=== PATIENT | female | born 1955 | race Two or more races ===

== ENCOUNTER 2017-03-16 13:52 | Inpatient (IN) | payer OTHER ==
[~2017-03-16] VITALS: Ht 167.6 cm; Wt 95.6 kg
[2017-03-16 14:00] VITALS: BP 121/75
[2017-03-16] MEDS ORDERED: MYCOSTATIN1 APPLICAT TP (14:36)
[2017-03-16] MEDS ORDERED: SENNA8.6 MG PO (14:37)
[2017-03-16] MEDS ORDERED: K-DUR20 MEQ PO (14:38)
[2017-03-16] MEDS ORDERED: TRADJENTA5 MG PO (14:39)
[2017-03-16] MEDS ORDERED: GLUCOPHAGE500 MG PO (14:41)
[2017-03-16] MEDS ORDERED: HUMALOG100 UNIT/2 SQ (14:43)
[2017-03-16] MEDS ORDERED: LISINOPRIL2.5 MG PO (14:44)
[2017-03-16] MEDS ORDERED: PEPCID AC20 MG PO (14:45)
[2017-03-16] MEDS ORDERED: TYLENOL EXTRA500 MG PO (14:47)
[2017-03-16] MEDS ORDERED: METOPROLOL TART25 MG PO (14:49)
[2017-03-16] MEDS ORDERED: LO-DOSE ASPIRIN81 M2 PO (14:50)
[2017-03-16] MEDS ORDERED: GLYBURIDE2.5 MG PO (14:51)
[2017-03-16] MEDS ORDERED: COUMADIN10 MG PO (14:53)
[2017-03-16] MEDS ORDERED: ALBUTEROL2.5 MG/0.5 IH ×2 (14:57→14:59)
[2017-03-16] MEDS ORDERED: ULTRAM50 MG PO (15:00)
[2017-03-16] MEDS ORDERED: ERGOCALCIF50000 UNIT PO (15:02)
[2017-03-16] MEDS ORDERED: LEVEMIR FL100 UNIT/1 SQ (15:03)
[2017-03-16] MEDS ORDERED: SIMVASTATIN20 MG PO (15:05)
[2017-03-16] MEDS ORDERED: GLYBURIDE-METF1 EAC1 PO (16:08)
[2017-03-16 16:13] LABS: POINT-OF-CARE METER ID UU14174215
[2017-03-16 19:27] LABS: INTER. NORMALIZED RATIO 2.1; PROTHROMBIN TIME 22.2 (9.2-11.2)
[2017-03-16 21:18] LABS: POINT-OF-CARE METER ID UU14174215
[2017-03-16 22:32] VITALS: BP 111/57
[2017-03-17 05:36] VITALS: BP 102/59
[2017-03-17 05:40] LABS: INTER. NORMALIZED RATIO 1.9; PROTHROMBIN TIME 19.4 (9.2-11.2)
[2017-03-17 05:54] LABS: HEMATOCRIT 35.5 % (36.0-46.0); MCH 26.3 PG (29.0-34.0); MCHC 30.4 G/DL (30.0-36.0); MCV 86.4 FL (83-99); MEAN PLAT.VOLUME 9.6 uM^3 (9.5-12.4); PLATELET COUNT 271 K/uL (156-360); RBC DIS.WIDTH-SD 44.4 % (39-53); RED BLOOD COUNT 4.11 M/uL (3.80-5.20); WHITE BLOOD COUNT 8.4 K/uL (4.1-10.2)
[2017-03-17 05:56] LABS: ALKALINE PHOSPHATASE 48 IU/L (3-129); ANION GAP 10 MEQ/L (2-14); CHLORIDE 104 MEQ/L (99-109); GFR ESTIMATE (CALCULATED) > 59 mL/min/; GLUCOSE 128 mg/dL (70-99); POTASSIUM 4.2 MEQ/L (3.7-5.4); SAMPLE HEMOLYSIS CHECK 0; SAMPLE ICTERIC CHECK 0; SAMPLE LIPEMIA CHECK 0; SODIUM 136 MEQ/L (136-147); TOTAL BILIRUBIN 0.3 MG/DL (0.0-1.0); UREA NITROGEN (BUN) 18 mg/dL (9-23)
[2017-03-17 06:56] LABS: POINT-OF-CARE METER ID UU14174215; POINT-OF-CARE USER ID ENVGAF
[2017-03-17 11:25] LABS: POINT-OF-CARE METER ID UU14174215
[2017-03-17 15:08] VITALS: BP 113/74
[2017-03-17 16:19] LABS: POINT-OF-CARE METER ID UU14174215
[2017-03-17 21:15] LABS: POINT-OF-CARE METER ID UU14174215
[2017-03-18 05:09] LABS: INTER. NORMALIZED RATIO 2.1; PROTHROMBIN TIME 21.7 (9.2-11.2)
[2017-03-18 05:33] VITALS: BP 101/61
[2017-03-18 07:23] LABS: POINT-OF-CARE METER ID UU14174215
[2017-03-18 11:39] LABS: POINT-OF-CARE METER ID UU13113720; POINT-OF-CARE USER ID AHSSSJB31
[2017-03-18 15:00] VITALS: BP 126/76
[2017-03-18 17:04] LABS: POINT-OF-CARE METER ID UU13113720
[2017-03-18 21:07] LABS: POINT-OF-CARE METER ID UU13113720
[2017-03-19 05:28] VITALS: BP 105/59
[2017-03-19 05:35] LABS: INTER. NORMALIZED RATIO 1.9; PROTHROMBIN TIME 19.7 (9.2-11.2)
[2017-03-19 07:28] LABS: POINT-OF-CARE METER ID UU14174215; POINT-OF-CARE USER ID AHSSSJB31
[2017-03-19 11:42] LABS: POINT-OF-CARE METER ID UU13113720; POINT-OF-CARE USER ID AHSSSJB31
[2017-03-19 15:37] VITALS: BP 135/75
[2017-03-19 16:19] LABS: POINT-OF-CARE METER ID UU13113720
[2017-03-19 21:30] LABS: POINT-OF-CARE METER ID UU14174215
[2017-03-20 05:32] LABS: INTER. NORMALIZED RATIO 1.9; PROTHROMBIN TIME 19.9 (9.2-11.2)
[2017-03-20 05:46] VITALS: BP 112/69
[2017-03-20 07:17] LABS: POINT-OF-CARE METER ID UU14174215; POINT-OF-CARE USER ID AHSSSJB31
[2017-03-20 12:16] LABS: POINT-OF-CARE METER ID UU13113720; POINT-OF-CARE USER ID AHSSSJB31
[2017-03-20 15:23] VITALS: BP 128/73
[2017-03-20 16:27] LABS: POINT-OF-CARE METER ID UU13113720
[2017-03-20 21:22] LABS: POINT-OF-CARE METER ID UU13113720
[2017-03-21 03:07] LABS: HEMATOCRIT 37.3 % (36.0-46.0); MCH 26.6 PG (29.0-34.0); MCHC 31.9 G/DL (30.0-36.0); MCV 83.4 FL (83-99); MEAN PLAT.VOLUME 9.5 uM^3 (9.5-12.4); RBC DIS.WIDTH-CV 14.1 % (11.8-14.6); RBC DIS.WIDTH-SD 43.2 % (39-53); RED BLOOD COUNT 4.47 M/uL (3.80-5.20); WHITE BLOOD COUNT 7.6 K/uL (4.1-10.2)
[2017-03-21 03:09] LABS: PLATELET COUNT 364 K/uL (156-360)
[2017-03-21 03:16] LABS: CHLORIDE 107 mEq/L (99-109); POTASSIUM 4.4 mEq/L (3.7-5.4); SODIUM 138 mEq/L (136-147)
[2017-03-21 03:18] LABS: GLUCOSE 122 mg/dL (70-99)
[2017-03-21 03:19] LABS: ANION GAP 9 MEQ/L (2-14)
[2017-03-21 03:20] LABS: TOTAL BILIRUBIN 0.3 mg/dL (0.0-1.0)
[2017-03-21 03:22] LABS: ALKALINE PHOSPHATASE 61 IU/L (3-129); D-DIMER ELISA 3.09 mg/L FEU (< 0.57); GFR ESTIMATE (CALCULATED) > 59 mL/min/; PROTHROMBIN TIME 20.9 (9.2-11.2); TROP-I INTERPRETATION NEGATIVE; TROPONIN-I 0.03 ng/mL (0.0-0.30)
[2017-03-21 03:23] LABS: UREA NITROGEN (BUN) 19 mg/dL (9-23)
[2017-03-21] MEDS ORDERED: NITROSTAT0.4 MG SL (15:56)
== END 2017-03-21 03:26 | DRG 945 ==
LOC: 3WEST 13:52
PROVIDERS: Internal Medicine; Physical Medicine & Rehabilitation Pain Medicine
PROC: F07M0ZZ Range of Motion and Joint Mobility Treatment of Musculoskeletal System - Whole Body (ICD-10-PCS; principal; 2017-03-16)
DX: R53.1 Weakness (principal); I21.4 Non-ST elevation (NSTEMI) myocardial infarction; R26.2 Difficulty in walking, not elsewhere classified; R07.9 Chest pain, unspecified; R41.0 Disorientation, unspecified; R41.89 Other symptoms and signs involving cognitive functions and awareness; D62 Acute posthemorrhagic anemia; I10 Essential (primary) hypertension; I25.10 Atherosclerotic heart disease of native coronary artery without angina pectoris; E78.5 Hyperlipidemia, unspecified; I25.5 Ischemic cardiomyopathy; E11.9 Type 2 diabetes mellitus without complications; M19.90 Unspecified osteoarthritis, unspecified site; J44.9 Chronic obstructive pulmonary disease, unspecified; E66.9 Obesity, unspecified; K21.9 Gastro-esophageal reflux disease without esophagitis; F17.210 Nicotine dependence, cigarettes, uncomplicated; Z68.34 Body mass index [BMI] 34.0-34.9, adult; Z95.1 Presence of aortocoronary bypass graft; Z88.0 Allergy status to penicillin; Z88.1 Allergy status to other antibiotic agents
CPT/HCPCS: 71020; 80053; 82948; 84484; 85027; 85379; 85610; 92523 GN; 93005; 93306; 97110 GO; 97530 GP; 97532 GN; 99202; J1815; J2270

== ENCOUNTER 2017-03-21 03:03 | Observation (INO) | payer OTHER ==
[~2017-03-21] VITALS: Ht 167.6 cm; Wt 92.8 kg
[~2017-03-21 03:03] MED LIST: ALBUTEROL2.5 MG/0.5 IH; COUMADIN10 MG PO; ERGOCALCIF50000 UNIT PO; GLUCOPHAGE500 MG PO; GLYBURIDE-METF1 EAC1 PO; GLYBURIDE2.5 MG PO; HUMALOG100 UNIT/2 SQ; K-DUR20 MEQ PO; LEVEMIR FL100 UNIT/1 SQ; LISINOPRIL2.5 MG PO; LO-DOSE ASPIRIN81 M2 PO; METOPROLOL TART25 MG PO; MYCOSTATIN1 APPLICAT TP; PEPCID AC20 MG PO; SENNA8.6 MG PO; SIMVASTATIN20 MG PO; TRADJENTA5 MG PO; TYLENOL EXTRA500 MG PO; ULTRAM50 MG PO
[2017-03-21 03:53] VITALS: BP 115/65
[2017-03-21 08:19] LABS: POINT-OF-CARE METER ID UU13113700
[2017-03-21 09:00] VITALS: BP 107/61
[2017-03-21 10:00] LABS: TROP-I INTERPRETATION NEGATIVE; TROPONIN-I 0.02 ng/mL (0.0-0.30)
[2017-03-21 11:44] VITALS: BP 106/60
[2017-03-21 12:12] LABS: POINT-OF-CARE METER ID UU13113831
[2017-03-21 12:44] LABS: MCH 26.8 PG (29.0-34.0); MCHC 31.4 G/DL (30.0-36.0); MCV 85.5 FL (83-99); MEAN PLAT.VOLUME 9.4 uM^3 (9.5-12.4); PLATELET COUNT 310 K/uL (156-360); RBC DIS.WIDTH-CV 14.2 % (11.8-14.6); RBC DIS.WIDTH-SD 43.8 % (39-53); RED BLOOD COUNT 4.33 M/uL (3.80-5.20); WHITE BLOOD COUNT 5.9 K/uL (4.1-10.2)
[2017-03-21 13:39] LABS: ALKALINE PHOSPHATASE 58 IU/L (3-129); ANION GAP 8 MEQ/L (2-14); CHLORIDE 105 MEQ/L (99-109); GFR ESTIMATE (CALCULATED) > 59 mL/min/; GLUCOSE 122 mg/dL (70-99); POTASSIUM 4.9 MEQ/L (3.7-5.4); SAMPLE HEMOLYSIS CHECK 0; SAMPLE ICTERIC CHECK 0; SAMPLE LIPEMIA CHECK 0; SODIUM 140 MEQ/L (136-147); TOTAL BILIRUBIN 0.3 MG/DL (0.0-1.0); UREA NITROGEN (BUN) 16 mg/dL (9-23)
[2017-03-21 15:38] LABS: TROP-I INTERPRETATION NEGATIVE; TROPONIN-I 0.03 ng/mL (0.0-0.30)
[2017-03-21] MEDS ORDERED: NITROSTAT0.4 MG SL (15:56)
[2017-03-21 16:55] VITALS: BP 106/60
[2017-03-21 17:08] LABS: POINT-OF-CARE METER ID UU13113700
== END 2017-03-21 17:59 ==
LOC: 5WEST 03:03
PROVIDERS: Hospitalist; Internal Medicine
DX: R07.9 Chest pain, unspecified (principal); I25.10 Atherosclerotic heart disease of native coronary artery without angina pectoris; I25.2 Old myocardial infarction; I10 Essential (primary) hypertension; Z86.711 Personal history of pulmonary embolism; J44.1 Chronic obstructive pulmonary disease with (acute) exacerbation; K21.9 Gastro-esophageal reflux disease without esophagitis; I25.5 Ischemic cardiomyopathy; I34.0 Nonrheumatic mitral (valve) insufficiency; E78.00 Pure hypercholesterolemia, unspecified; E66.9 Obesity, unspecified; Z68.33 Body mass index [BMI] 33.0-33.9, adult; Z95.1 Presence of aortocoronary bypass graft; Z79.01 Long term (current) use of anticoagulants; Z87.891 Personal history of nicotine dependence
CPT/HCPCS: 80053; 82948; 84484; 85027; 93005; 99202; G0378; J1815; J7030

== ENCOUNTER 2017-03-21 15:37 | Inpatient (IN) | payer OTHER ==
[~2017-03-21] VITALS: Ht 167.6 cm; Wt 92.0 kg
[2017-03-21] MEDS ORDERED: NITROSTAT0.4 MG SL (15:56)
[2017-03-21 18:00] VITALS: BP 121/66
[2017-03-21 21:19] LABS: POINT-OF-CARE METER ID UU13113712; POINT-OF-CARE USER ID 610211320
[2017-03-22 05:09] VITALS: BP 114/67
[2017-03-22 06:18] LABS: HEMATOCRIT 36.8 % (36.0-46.0); MCH 26.2 PG (29.0-34.0); MCV 84.6 FL (83-99); MEAN PLAT.VOLUME 9.5 uM^3 (9.5-12.4); PLATELET COUNT 320 K/uL (156-360); RBC DIS.WIDTH-CV 13.9 % (11.8-14.6); RBC DIS.WIDTH-SD 43.3 % (39-53); RED BLOOD COUNT 4.35 M/uL (3.80-5.20); WHITE BLOOD COUNT 6.4 K/uL (4.1-10.2)
[2017-03-22 06:43] LABS: ALKALINE PHOSPHATASE 59 IU/L (3-129); ANION GAP 9 MEQ/L (2-14); CHLORIDE 105 MEQ/L (99-109); GFR ESTIMATE (CALCULATED) > 59 mL/min/; GLUCOSE 127 mg/dL (70-99); POTASSIUM 4.5 MEQ/L (3.7-5.4); SAMPLE HEMOLYSIS CHECK 0; SAMPLE ICTERIC CHECK 0; SAMPLE LIPEMIA CHECK 0; SODIUM 137 MEQ/L (136-147); TOTAL BILIRUBIN 0.3 MG/DL (0.0-1.0); UREA NITROGEN (BUN) 22 mg/dL (9-23)
[2017-03-22 06:48] LABS: POINT-OF-CARE METER ID UU13113720; POINT-OF-CARE USER ID ENVGAF
[2017-03-22 07:03] LABS: INTER. NORMALIZED RATIO 2.5; PROTHROMBIN TIME 26.3 (9.2-11.2)
[2017-03-22 11:42] LABS: POINT-OF-CARE METER ID UU14174215; POINT-OF-CARE USER ID ENVGAF
[2017-03-22 14:55] VITALS: BP 102/61
[2017-03-22 16:36] LABS: POINT-OF-CARE METER ID UU13113720
[2017-03-22 21:57] LABS: POINT-OF-CARE METER ID UU13113720
[2017-03-23 05:21] VITALS: BP 124/79
[2017-03-23 07:18] LABS: POINT-OF-CARE METER ID UU13113720
[2017-03-23 09:56] LABS: INTER. NORMALIZED RATIO 2.1; PROTHROMBIN TIME 22.1 (9.2-11.2)
[2017-03-23 12:15] LABS: POINT-OF-CARE METER ID UU14174215
[2017-03-23 15:59] VITALS: BP 101/65
[2017-03-23 16:46] LABS: POINT-OF-CARE METER ID UU13113720
[2017-03-23 21:11] LABS: POINT-OF-CARE METER ID UU14174215
[2017-03-24 05:37] LABS: HEMATOCRIT 39.2 % (36.0-46.0); MCH 26.1 PG (29.0-34.0); MCHC 30.9 G/DL (30.0-36.0); MCV 84.5 FL (83-99); MEAN PLAT.VOLUME 9.7 uM^3 (9.5-12.4); PLATELET COUNT 345 K/uL (156-360); RBC DIS.WIDTH-CV 14.1 % (11.8-14.6); RBC DIS.WIDTH-SD 43.1 % (39-53); RED BLOOD COUNT 4.64 M/uL (3.80-5.20)
[2017-03-24 05:43] LABS: CHLORIDE 107 mEq/L (99-109); SODIUM 140 mEq/L (136-147)
[2017-03-24 05:44] LABS: INTER. NORMALIZED RATIO 1.8
[2017-03-24 05:45] LABS: GLUCOSE 121 mg/dL (70-99)
[2017-03-24 05:47] LABS: ANION GAP 8 MEQ/L (2-14); TOTAL BILIRUBIN 0.3 mg/dL (0.0-1.0)
[2017-03-24 05:49] LABS: ALKALINE PHOSPHATASE 57 IU/L (3-129); GFR ESTIMATE (CALCULATED) > 59 mL/min/
[2017-03-24 05:50] LABS: UREA NITROGEN (BUN) 21 mg/dL (9-23)
[2017-03-24 06:37] VITALS: BP 125/68
[2017-03-24 07:50] LABS: POINT-OF-CARE METER ID UU14174215; POINT-OF-CARE USER ID AHSSSJB31
[2017-03-24 11:55] LABS: POINT-OF-CARE METER ID UU14174215; POINT-OF-CARE USER ID AHSSSJB31
[2017-03-24 15:07] VITALS: BP 125/71
[2017-03-24 16:52] LABS: POINT-OF-CARE METER ID UU13113720
[2017-03-24 21:28] LABS: POINT-OF-CARE METER ID UU14174215
[2017-03-24] MEDS ORDERED: ERGOCALCIF50000 UNIT PO (22:26)
[2017-03-24] MEDS ORDERED: K-DUR20 MEQ PO (22:26)
[2017-03-24] MEDS ORDERED: GLIPIZIDE5 MG PO (22:26)
[2017-03-24] MEDS ORDERED: COUMADIN10 MG PO (22:26)
[2017-03-24] MEDS ORDERED: METFORMIN HCL500 MG PO (22:26)
[2017-03-24] MEDS ORDERED: ULTRAM50 MG PO (22:26)
[2017-03-24] MEDS ORDERED: METOPROLOL TART25 MG PO (22:26)
[2017-03-24] MEDS ORDERED: LEVEMIR FL100 UNIT/1 SQ (22:26)
[2017-03-24] MEDS ORDERED: LO-DOSE ASPIRIN81 M2 PO (22:26)
[2017-03-24] MEDS ORDERED: FOLIC ACID1 MG PO (22:26)
[2017-03-24] MEDS ORDERED: PEPCID AC20 MG PO (22:26)
[2017-03-24] MEDS ORDERED: JANUVIA100 MG PO (22:26)
[2017-03-24] MEDS ORDERED: Ocean Nasal 0.65% BOTH NARES (22:26)
[2017-03-24] MEDS ORDERED: ESCITALOPRAM OX10 MG PO (22:26)
[2017-03-24] MEDS ORDERED: THERAGRAN1 TABLET PO (22:26)
[2017-03-24] MEDS ORDERED: ASCORBIC ACID500 M3 PO (22:26)
[2017-03-24] MEDS ORDERED: SENNA8.6 MG PO (22:26)
[2017-03-24] MEDS ORDERED: METAXALONE800 MG PO (22:26)
[2017-03-24] MEDS ORDERED: SIMVASTATIN20 MG PO (22:26)
[2017-03-25 04:33] LABS: INTER. NORMALIZED RATIO 1.7; PROTHROMBIN TIME 17.8 (9.2-11.2)
[2017-03-25 05:09] VITALS: BP 101/57
[2017-03-25 08:22] LABS: POINT-OF-CARE METER ID UU14174215
[2017-03-25 11:41] LABS: POINT-OF-CARE METER ID UU14174215; POINT-OF-CARE USER ID AHSSSJB31
== END 2017-03-25 15:40 | disposition home health service (06) | DRG 945 ==
LOC: 3WEST 15:37
PROVIDERS: Physical Medicine & Rehabilitation Pain Medicine
PROC: F07M7ZZ Manual Therapy Techniques Treatment of Musculoskeletal System - Whole Body (ICD-10-PCS; principal; 2017-03-21)
DX: R53.1 Weakness (principal); Z95.1 Presence of aortocoronary bypass graft; G89.18 Other acute postprocedural pain; F43.23 Adjustment disorder with mixed anxiety and depressed mood; I50.9 Heart failure, unspecified; I25.10 Atherosclerotic heart disease of native coronary artery without angina pectoris; R07.89 Other chest pain; E78.5 Hyperlipidemia, unspecified; I10 Essential (primary) hypertension; E11.9 Type 2 diabetes mellitus without complications; M19.90 Unspecified osteoarthritis, unspecified site; K21.9 Gastro-esophageal reflux disease without esophagitis; J44.9 Chronic obstructive pulmonary disease, unspecified; F17.210 Nicotine dependence, cigarettes, uncomplicated; D62 Acute posthemorrhagic anemia; I25.2 Old myocardial infarction
CPT/HCPCS: 80053; 82948; 85027; 85610; 92523 GN; 97530 GP; 97532 GN; 99202